=== PATIENT | male | born 1980 | race African-American/Black ===

== ENCOUNTER 2019-01-29 05:55 | Day surgery (SDC) | payer OTHER ==
[~2019-01-29] VITALS: Ht 180.3 cm; Wt 98.1 kg
[2019-01-29] MEDS ORDERED: IV RINGERS,LACTATED 1000ML 1,000 ML IV SCH (06:45)
--- NOTE | 2019-01-29 06:57 | DISCH ---
DISCHARGE INSTRUCTIONS Condition on Discharge Condition on Discharge: Stable Activity After Discharge Activity Instructions for Disc: Other, see below Other activity instructions: arm to remain in sling Bathing Instructions: Shower-keep dressing dry Weight Bearing Status after Di: Non weight bearing Diet after Discharge Diet after Discharge: Regular Wound Incision Care Wound/Incision Care: Ice to area for comfort, Change dressing Other wound/incision instructi: ok to change dressing after [address] after DC Call your doctor for: Concerns you may have Follow-Up Follow up with: Prasanth in 2wks MEGHAN MENENDEZ II, MD Jan 29, 2019 06:57
[2019-01-29] MEDS ORDERED: BUPIVACAINE MPF 0.5% 30 ML VIAL. ONE ×2 (07:01→07:09)
[2019-01-29] MEDS ORDERED: LIDOCAINE 1% PF 2 ML VIAL. ONE (07:01)
[2019-01-29] MEDS ORDERED: MIDAZOLAM HCL/PF 2 MG/2 ML VIAL. ONE (07:01)
[2019-01-29] MEDS ORDERED: EPINEPHrine 1 MG/ML VIAL ONE (07:01)
[2019-01-29] MEDS ORDERED: EPINEPHrine VIAL 30 MG/30 ML VIAL ONE (07:08)
[2019-01-29] MEDS ORDERED: LIDOCAINE 1% PF 30 ML VIAL. ONE (07:08)
[2019-01-29] MEDS ORDERED: PROPOFOL 20 ML IV ONE (07:09)
[2019-01-29] MEDS ORDERED: KETOROLAC 30 MG/ML VIAL. ONE (07:09)
[2019-01-29] MEDS ORDERED: FAMOTIDINE 20 MG/2 ML VIAL ONE (07:09)
[2019-01-29] MEDS ORDERED: ONDANSETRON PF 4 MG/2 ML VIAL. ONE (07:09)
[2019-01-29] MEDS ORDERED: DEXAMETHASONE SOD PHOS 4 MG/ML VIAL ONE (07:09)
[2019-01-29] MEDS ORDERED: LIDOCAINE 2% PF 5 ML VIAL. ONE (07:09)
[2019-01-29] MEDS ORDERED: ROCURONIUM 50 MG/5 ML VIAL. ONE ×2 (07:09→08:12)
[2019-01-29] MEDS ORDERED: PHENYLEPHRINE 10 MG/ML VIAL. ONE (07:13)
[2019-01-29] MEDS ORDERED: DEXAMETHASONE SOD PHOS 20 MG/5 ML VIAL. ONE (07:13)
[2019-01-29] MEDS ORDERED: ROCURONIUM 100 MG/10 ML VIAL. ONE (08:11)
[2019-01-29] MEDS ORDERED: GLYCOPYRROLATE 1 MG/5 ML VIAL. ONE (08:57)
[2019-01-29] MEDS ORDERED: NEOSTIGMINE METHYLSULFATE 5 MG/5 ML SYRINGE. ONE (08:58)
[2019-01-29] MEDS ORDERED: SEVOFLURANE > 120 MINUTES. IH ONE (08:59)
[2019-01-29] MEDS ORDERED: ceFAZolin 2GM PREMIX 2 GM/50 ML BAG IV ONE (09:00)
--- NOTE | 2019-01-29 09:23 | PDOC4 ---
Operative Note Operative Note Date of procedure: 01/29/2019 Surgeon: Jay Menendez Asst.: Vick Sylvester, advanced practice registered nurse Preoperative diagnosis: Right shoulder labral tear Postoperative diagnosis:#1 right shoulder posterior superior labral tear #2 right shoulder biceps rupture Procedure performed: Right shoulder arthroscopy with labral repair Anesthesia: Gen. plus regional nerve block Findings: #1 unremarkable glenohumeral cartilage #2 small, 1 cm tear posterior superior labrum, remainder of labrum unremarkable #3 small amount of fraying at articular side of supraspinatus and leading portion of infraspinatus #4 no loose bodies Blood loss:5 mLs Components inserted: Galeas and nephew 1.7 mm suturefix anchor Complications: none Reason for procedure: Patient is a pleasant active individual in the who has had persistent and slowly progressive shoulder pain that is interfering with his ability to meet the physical training requirements and enjoys recreational activities that has failed conservative therapies. Please see my outpatient notes for full details. We had a discussion of the risks, benefits, and alternatives to the above procedure and he wished to proceed. Description of procedure: The patient was greeted in the preoperative holding area by myself for the correct extremity was verified and marked. He was taken to the operative suite and his antibiotics were started as he was brought back. Prior to heading back to the operating room, he had placement of a regional nerve block by the anesthesiology team. Once in the operating room, he was transferred gently supine to the operating room table and secured the bed with all pressure points padded and had successful induction of a general anesthetic. We then set him up in a beachchair position, maintaining C-spine in a neutral position. We then proceeded prep and drape right upper extremity and shoulder girdle in our usual sterile fashion including Ioban at the periphery. After this, I palpated and marked surface anatomy for my planned portals and possible incision. After this, used a spinal needle to localize a posterior superior portal and incised skin in accordance with this. I entered the glenohumeral joint with the blunt arthroscopic trocar followed by the camera. I then used a spinal needle to localize an anterosuperior portal and incised skin in accordance with this as well. I dilated this hole and introduced my arthroscopic probing conducted my diagnostic arthroscopy with the above-noted findings. I then passed a PDS suture through the rotator cuff fraying, I repositioned my camera into the subacromial space and performed a bursectomy for visualization and inspected the rotator cuff, after creating a lateral portal using spinal needle guidance. I was not able to violate the substance of the rotator cuff with the trocar. I therefore removed the PDS suture and re-position my camera into the glenohumeral joint. I then placed cannulas into my anterosuperior and posterior superior portals. I then used the arthroscopic elevator to release this small labral tear and used the shaver to prepare the bony bed. I then placed a single suture anchor into this area and used the Nusocket suture passing device to shuttle a suture limbs through in a simple configuration and tied the knot down with arthroscopic knot-tying techniques. The tear was stable to probing. After this, I removed all arthroscopic instrumentation, and the excess arthroscopic fluid. Portals were closed with simple interrupted 3-0 nylon. No complications. Surgery was well tolerated by the patient. At the conclusion, he was awakened from anesthesia and laid supine and transferred supine to the recovery room cart. He was taken to PACU stable and extubated condition. Postoperative plan is to discharge him home, nonweightbearing, he will use a sling. I will see him back in 2 weeks, sooner should a problem arise JAY MENENDEZ II, MD Jan 29, 2019 09:23
[2019-01-29] MEDS ORDERED: DOCU-109 PO (09:42)
[2019-01-29] MEDS ORDERED: ONDA4TAB7 PO/SL (09:43)
[2019-01-29] MEDS ORDERED: OXYC1TAB15 PO ×2 (09:44→09:45)
[2019-01-29 10:30] VITALS: BP 151/89
[2019-01-29] MEDS ORDERED: oxyCODONE/APAP 5/325 1 TAB TABLET ONE (11:20)
[2019-01-29] MEDS ORDERED: oxyCODONE/APAP 5/325 1 TAB TABLET PO ONE (11:30)
== END 2019-01-29 11:30 | disposition home or self-care (01) ==
LOC: SURG 05:55
PROVIDERS: ATTEND Orthopaedic Surgery Sports Medicine
DX: S43.431A Superior glenoid labrum lesion of right shoulder, initial encounter (principal); E55.9 Vitamin D deficiency, unspecified; X58.XXXA Exposure to other specified factors, initial encounter; Y93.89 Activity, other specified; Y92.89 Other specified places as the place of occurrence of the external cause; Y99.8 Other external cause status; Z98.890 Other specified postprocedural states
CPT/HCPCS: 29807; 36415; 82306; A7015; C1713; C1782; J0171; J0696; J1100; J1885; J2001; J2250; J2405; J2704; J2710; J3490; J7120